=== PATIENT | female | born 1955 | race Two or more races ===

== ENCOUNTER 2025-06-10 06:45 | Day surgery (SDC) | payer MEDICARE, MEDICAID, SELFPAY ==
[2025-06-10] VITALS (11 sets, daily range): BP systolic 136–176; BP diastolic 66–83; PULSE 76–97; RESP 12–18; TEMP 36.2–36.4; O2SAT 95–100; BMI 24.9
[2025-06-10] MEDS: RINGERS LACTATED 500 ML 500 ML 20 ML IV (07:36)
[2025-06-10] MEDS: fentaNYL CIT INJ 50 mCg/ML AMP 2ML (ASD USE ONLY) IVP (07:39)
[2025-06-10] MEDS: MIDAZOLAM INJ 1 MG/ML VIAL 2 ML (ASD USE ONLY) 2 MG IVP (07:39)
[2025-06-10] MEDS: SIMETHICONE 40 MG/0.6 ML ORAL SYRINGE PO (07:43)
== END 2025-06-10 08:35 | disposition home or self-care (01) ==
PROVIDERS: PCP Internal Medicine; Referring Provider Internal Medicine Gastroenterology; Visit Provider Internal Medicine Gastroenterology
PROC: 0DBE8ZX Excision of Large Intestine, Via Natural or Artificial Opening Endoscopic, Diagnostic (ICD-10-PCS; CPT 45380; principal; 2025-06-10 07:30)
DX: D12.3 Benign neoplasm of transverse colon (principal); K64.1 Second degree hemorrhoids; R19.5 Other fecal abnormalities; I10 Essential (primary) hypertension
CPT/HCPCS: 45380; 45385; A4649; J2250; J3010; J7120; A9270